=== PATIENT | male | born 1950 | race Caucasian/White ===

== ENCOUNTER 2023-02-15 01:39 | Outpatient (CLI) | payer MEDICARE, SELFPAY ==
--- NOTE | 2023-02-15 | DI.CT_ITS ---
Exam(s) CT NECK CHEST ABD PEL W EXAM: CT NECK CHEST ABD PEL W CLINICAL HISTORY: GRADE 2 FOLLICULAR LYMPHOMA, TREATED 2017, RESTAGING TECHNIQUE: Imaging Protocol: Axial computed tomography images with coronal and sagittal reformatted images were created and reviewed CONTRAST MATERIAL: Intravenous: Contrast contrast volume:structured data in ml mL Oral: yes / no COMPARISON: There are no prior examinations submitted for comparison at the time of dictation. Ther e are no prior studies at this institution. FINDINGS: CHEST: Tracheobronchial tree: Patent where visualized. Pulmonary parenchyma: No consolidation or dominant measurable mass. There is scarring seen in the lat eral aspect of the right upper lobe. Small paraseptal cysts are seen in the medial aspect of the rig ht lower lobe. Visualized thyroid gland: Unremarkable. Mediastinum and Karina: There are small lymph nodes seen in the mediastinum. The largest is pretrachea l and has a dimensions of 1.3 x 0.5 cm. There is concentric thickening of the distal esophagus. Thi s is nonspecific. An infectious or inflammatory esophagitis cannot be excluded. Pleura: No effusion or pneumothorax. Heart: The heart is not dilated. No coronary artery calcifications are seen. No pericardial effusion. Pulmonary arteries: The peripheral pulmonary arteries are insufficiently opacified. No large central pulmonary embolus is seen. Aorta: The ascending thoracic aorta measures 4.3 cm in diameter maximally. There is atherosclerosis. No evidence of dissection. Lymph nodes: No significant axillary or supraclavicular adenopathy is present. Soft tissues: Unremarkable. Bones:Within normal limits for the patient's age. Old healed left rib fractures are present. No agg ressive osseous lesions are identified. ABDOMEN: Liver: Normal density. No measurable mass. Portal, Superior Mesenteric, and Splenic Veins: Unremarkable. Gallbladder and Biliary Tract: No radiodense calculus or dilation. Pancreas: Normal density, no abnormal calcifications or inflammatory process. Spleen: Normal. Adrenals: No masses seen. Kidneys: Normal size, contour and axis. No radiodense stones or obstructive uropathy. No masses seen. Note is made of a retroaortic left renal vein. Abdominal Aorta: There is a 3.2 cm infrarenal abdominal aortic aneurysm. Atherosclerosis is present. Bowel: There is diverticulosis of the sigmoid colon, but no evidence of acute diverticulitis. There is no evidence of bowel wall thickening or obstruction. No evidence of appendicitis. Peritoneal Cavity: No ascites, collection or mesenteric inflammatory response. No free air. Lymph Nodes: Within normal limits. Bones: Within normal limits for the patient's age. No aggressive osseous lesions are present. Soft Tissues: There is a small fat containing left inguinal hernia. PELVIS: Bladder: There is diffuse thickening of the wall of the urinary bladder. This may be due to underdis tention, but cystitis cannot be excluded. Reproductive Organs: Mildly enlarged prostate gland. Lymph Nodes: Within normal limits. Bones: Within normal limits. Neck: Orbits and orbital soft tissues: Within normal limits. Visualized paranasal sinuses: Within normal limits. Nasopharynx: Within normal limits. Oropharynx: Within normal limits. Hypopharynx: Within normal limits. Larynx: Within normal limits. Retropharyngeal space: Within normal limits. Parotids/submandibular: Within normal limits. Thyroid gland: Within normal limits. Lymphadenopathy: There is scattered lymph nodes seen along the level one to level three all measurin g less than 8 mm in short axis diameter which are physiologic in nature. Trachea: Within normal limits. Bones: Within normal limits for the patient's age. Carotids/Jugular: Within normal limits. IMPRESSION: 1. No significant adenopathy in the neck, chest, abdomen or pelvis. 2. Concentric mild thickening of the wall of the esophagus. This may be due to underdistention but a n infectious or inflammatory esophagitis cannot be excluded. Please correlate clinically. 3. 4.3 cm ascending thoracic aorta. 4. 3.2 cm infrarenal abdominal aortic aneurysm. 5. Mild diffuse thickening of the wall of the urinary bladder. This may be due to underdistention bu t cystitis cannot be excluded. RADIATION DOSE DELIVERED: 1,794.75mGy.cm Total DLP DATA REPOSITORY: All CT scans at this facility are submitted to the National Radiology Data Registry (NRDR) Dose Index Registry (DIR) with the [employer] ([employer]). RADIATION OPTIMIZATION: All CT scans at this facility use at least one of these dose optimization te chniques: automated exposure control; mA and/or kV adjustment per patient size (includes targeted exa ms where dose is matched to clinical indication); or iterative reconstruction.
[2023-02-15 10:29] LABS: Abs Immature Grans 0.01 10^3/uL (0.0-0.06); Absolute Basophil Count 0.04 10^3/uL (0.0-0.2); Absolute Eosinophil Count 0.14 10^3/uL (0.0-0.7); Absolute Lymphocyte Count 1.22 10^3/uL (1.2-3.4); Absolute Monocyte Count 0.62 10^3/uL (0.1-0.8); Absolute Neutrophil Count 1.13 10^3/uL (1.2-6.7); Basophils % 1.3; Eosinophils % 4.4; HCT 37.1 % (40.0-50.0); HGB 12.5 g/dL (13.5-17.5); Immature Grans % 0.3; Lymphocytes % 38.6; MCH 34.5 pg (27.0-33.0); MCHC 33.7 % (32.0-36.0); MCV 103 fL (80-95); MPV 8.3 fL (8.0-11.0); Monocytes % 19.6; Neutrophils % 35.8; Platelet Count 206 10^3/uL (130-400); RBC 3.62 10^6/uL (4.36-5.78); RDW 14.6 % (11.8-14.1); RDW-SD 55.9 fL; WBC 3.16 10^3/uL (4.4-10.8)
[2023-02-15] MEDS: Barium Sulfate 2% W/V-Berry Smoothie 450 ML BTL PO (10:32)
[2023-02-15 10:44] LABS: ALT 41 U/L (16-63); AST 56 U/L (15-37); Albumin 3.1 g/dL (3.4-5.0); Alkaline Phosphatase 110 U/L (46-116); BUN 15 mg/dL (7-18); Bilirubin, Total 0.4 mg/dL (0.2-1.0); CREATININE 1.2 mg/dL (0.70-1.30); Calcium 8.9 mg/dL (8.5-10.1); Chloride 109 mmol/L (98-107); Estimated GFR 63.46 (mL/min/1.73m2); Glucose 84 mg/dL (74-106); LDH 225 U/L (85-227); Potassium 4.6 mmol/L (3.5-5.1); Sodium 145 mmol/L (136-145); Total Protein 7.7 g/dL (6.4-8.2)
[2023-02-15] MEDS: Omnipaque 350 MG/ML 100 ML BTL IJ (13:49)
[2023-02-15] MEDS: Normal Saline Flush 10 ML SYR IVP (13:50)
[2023-02-16 09:53] LABS: IgA 563 mg/dL (85-499); IgG 1010 mg/dL (610-1616); IgM 158 mg/dL (35-242)
== END 2023-02-15 01:59 ==
LOC: DI 01:40
PROVIDERS: Visit Provider Internal Medicine Hematology & Oncology
DX: C82.18 Follicular lymphoma grade II, lymph nodes of multiple sites (principal); N32.89 Other specified disorders of bladder; I71.43 Infrarenal abdominal aortic aneurysm, without rupture; K22.89 Other specified disease of esophagus
CPT/HCPCS: 70491; 74177; 80053; 82784; 71260; 83615; 85025; J3490